=== PATIENT | male | born 2000 | race Caucasian/White ===

== ENCOUNTER → 2024-08-23 10:54 | Outpatient (BNVA) | payer SELFPAY | PROVIDERS: Family Provider Family Medicine; Visit Provider Emergency Medicine | DX: M79.641 Pain in right hand (principal) | CPT/HCPCS: 73130 ==

== ENCOUNTER → 2024-09-05 12:01 | Outpatient (BNVA) | payer SELFPAY | PROVIDERS: Family Provider Family Medicine; Visit Provider Emergency Medicine | DX: S89.91XA Unspecified injury of right lower leg, initial encounter (principal); X58.XXXA Exposure to other specified factors, initial encounter | CPT/HCPCS: 73562 ==

== ENCOUNTER 2024-12-23 12:31 | Emergency (ER) | payer SELFPAY ==
--- OUTSIDE RECORDS SUMMARY | 2024-12-23 12:35 | XMS_ITS | Clinical Summary ---
Author Organization [facility] Address [address] [place] [address] Care Team Providers Care Environmental Adviser Name Role Phone Katharine Perez DO Primary Care Provider Allergies Active Allergy Reactions Criticality Noted Date Comments Codeine Other (See Comments) 01/12/2017 Family is allergic to this. Does not want him to have this medication. Medications acetaminophen (TYLENOL) 160 mg/5 mL (5 mL) Suspension oral suspensionIndica tions:Fever Take 18.55 mL by mouth every 4 hours as needed for Pain, Mild / Temperature . 120 mL 1 07/01/2013 Active ibuprofen (ADVIL;MOTRIN) 100 mg/5 mL suspensionIndica tions:Fever Take 5 mL by mouth every 6 hours as needed for Pain, Mild / Temperature . 120 mL 1 07/04/2013 Active cetirizine (ZYRTEC) 1 mg/mL Solution GIVE ROLLY 10ML BY MOUTH DAILY FOR 30 DAYS 300 mL PRN 11/17/2014 Active Active Problems No known active problems Immunizations Immunization Administration Dates Next Due (VARIVAX)(12 MOS UP)VARICELL A VIRUS VACCINE (PF) 0.5 ML, SUB CUT 06/22/2003 Dt Dtp Dtap Vaccine 06/22/2003, 3,2002,2001 HIB, Unspecified Formulation 2002,06/16/19 03,2002 Hepatitis B Vaccine 2002,2002 IPV/OPV 2002,2002,2002 Family History Medical History Relation Name Comments Cancer Mother Thyroid Relation Name Status Comments Father Alive Mother Alive Sister Alive Social History Tobacco Use Types Packs/Day Years Used Date Smoking Tobacco: Passive Smo ke Exposure - Never Smoker Alcohol Use Standard Drinks/Week Comments Not Asked 0 (1 standard drink = 0.6 oz pur e alcohol) Sex and Gender Information Value Date Recorded Sex Assigned at Not on file 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 Gender Identity Not on file Sexual Orientation Not on file Occupation Industry Job Start Date Job End Date Student Not on file Not on file Not on file Last Filed Vital Signs Vital Sign Reading Time Taken Comments Blood Pressure 120/68 01/12/2017 3:52 PM CDT Pulse 118 01/12/2017 3:52 PM CDT Temperature 36.4 C (97.5 F) 01/12/2017 3:52 PM CDT Respiratory Rate 22 05/18/2012 10:32 AM INK BLENDER Oxygen Saturation 99% 01/12/2017 3:52 PM CDT Inhaled Oxygen Concentration - - Weight 83 kg (183 lb) 01/12/2017 3:52 PM CDT Height 172.7 cm (5' 8 ) 01/12/2017 3:52 PM CDT Body Mass Index 27.83 01/12/2017 3:52 PM CDT Plan of Treatment Health Maintenance Due Date Last Done Comments HEPATITIS B VACCINES (3 of 3 - 3-dose series) 2002 2002, 2002 DTAP/TDAP/TD VACCINES (5 - Tdap) 2013 06/22/2003, 2002, 2002, Additional history exists HPV VACCINES (1 - Male 3-dos e series) 2017 Preventative Visit-Managed Medicaid 2021 INFLUENZA VACCINE (#1) 2024 Insurance [facility] MEDICAID Care Teams Environmental Adviser Relationship Specialty Start Date End Date Katharine Perez DO [address] [place] [id number] PCP - General Family Practice 08/14/10
--- OUTSIDE RECORDS SUMMARY | 2024-12-23 12:35 | XMS_ITS | Encounter Summary ---
Author Organization [facility] Address [address] [place] [address] Care Team Providers Care Iv Rn Name Role Phone Katharine Perez DO Primary Care Provider [phone] Encounter Details Date Type Department Care Team (Latest Contact Info) Description 09/02/2004 Outpatient Historical [facility] [place] [address] [place] [address] UNSPECIFIED VIRAL INFECTION (Primary Dx); ACUTE PHARYNGITIS Social History Tobacco Use Types Packs/Day Years Used Date Smoking Tobacco: Never Assessed Sex and Gender Information Value Date Recorded Sex Assigned at Not on file 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
--- OUTSIDE RECORDS SUMMARY | 2024-12-23 12:35 | XMS_ITS | Encounter Summary ---
Author Organization [facility] Address [address] 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
--- OUTSIDE RECORDS SUMMARY | 2024-12-23 12:35 | XMS_ITS | Clinical Summary ---
Author Organization [facility] Address [address] Attn: Epic Prelude ADT [place] [address] Care Team Providers Care Abrasive Grader Helper Name Role Phone Katharine Perez DO Primary Care Provider Allergies Active Allergy Reactions Criticality Noted Date Comments Codeine Other (See Comments) 01/12/2017 Family is allergic to this. Does not want him to have this medication. 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 Gender Identity Not on file Sexual Orientation Not on file Last Filed Vital Signs Vital Sign Reading Time Taken Comments Blood Pressure 120/68 01/12/2017 3:52 PM CDT Pulse 118 01/12/2017 3:52 PM CDT Temperature 36.4 C (97.5 F) 01/12/2017 3:52 PM CDT Respiratory Rate - - Oxygen Saturation - - Inhaled Oxygen Concentration - - Weight 83 kg (183 lb) 01/12/2017 3:52 PM CDT Height 172.7 cm (5' 8 ) 01/12/2017 3:52 PM CDT Body Mass Index 27.82 01/12/2017 3:52 PM CDT Plan of Treatment Health Maintenance Due Date Last Done Comments HEPATITIS B VACCINES (3 of 3 - 3-dose series) 2002 2002, 2002 DTAP/TDAP/TD VACCINES (5 - Tdap) 2013 06/22/2003, 2002, 2002, Additional history exists HPV VACCINES (1 - Male 3-dos e series) 2017 INFLUENZA VACCINE (#1) 2024 Care Teams Abrasive Grader Helper Relationship Specialty Start Date End Date Katharine Perez DO [address] [place] [address] PCP - General Family Practice 08/14/10
[2024-12-23 12:36] VITALS: BP 136/84; PULSE 99; RESP 19; TEMP 36.7; O2SAT 98; BMI 30.7
--- NOTE | 2024-12-23 13:17 | XR_ITS ---
WS: [id number] Exam: XR hand RT min 3V* [id number] Date/Time of Exam: 12/23/2024 1:23 PM Reason For Exam: pain/injury DLP: No acute fracture. The joints are preserved. No soft tissue foreign bodies. XR/XR hand RT min 3V* [id number] IMPRESSION: 1. Negative RIGHT hand.
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
== END 2024-12-23 13:55 | disposition home or self-care (01) ==
PROVIDERS: Emergency Provider Physician Assistant; Family Provider Family Medicine
DX: S60.221A Contusion of right hand, initial encounter (principal); W22.8XXA Striking against or struck by other objects, initial encounter
CPT/HCPCS: 73130; 99283; J9999